=== PATIENT | male | born 1940 | race Caucasian/White ===

== ENCOUNTER 2021-06-26 06:43 | Day surgery (SDC) | payer MEDICARE, OTHER ==
[2021-06-26] MEDS ORDERED: fentaNYL 100 MCG/2 ML SDV IV ONE (06:44)
[2021-06-26] MEDS ORDERED: Midazolam 1 MG/ML 2 ML SDV IV ONE (06:44)
[2021-06-26] MEDS ORDERED: Sodium Chloride 0.9% 10 ML Syringe FLUSH PRN (06:45)
[2021-06-26] MEDS ORDERED: Lactated Ringers 1,000 ML IV SCH (06:45)
[2021-06-26] MEDS ORDERED: acetaZOLAMIDE 500 MG Cap.ER PO ONE (09:00)
--- NOTE | 2021-06-26 11:54 | OR ---
DATE OF OPERATION: 06/26/2021 SURGEON: Apple Carpio MD PREOPERATIVE DIAGNOSIS: Visually significant cataract, right eye. POSTOPERATIVE DIAGNOSIS: Visually significant cataract, right eye. PROCEDURES PERFORMED: Phacoemulsification with intraocular lens placement, right eye. ASSISTANTS: None. ANESTHESIA: Local with sedation. COMPLICATIONS: None. BLOOD LOSS: None. IMPLANTS: Walter Vivity [id number] 20.0 diopter lens implanted. CDE: 4.78. DESCRIPTION OF PROCEDURE: After risks and benefits were reviewed with the patient, consent was obtained in the preoperative area, and the operative eye was marked with a surgical pen. In the preoperative area, a pledget was used to dilate the pupil consisting of a mixture of phenylephrine 10%, cyclopentolate 2%, moxifloxacin 0.5%, and bupivacaine 0.75%. The patient was taken to the operating room, where a time-out was performed, and the patient was placed under monitored anesthesia care. Topical tetracaine was used for anesthesia. The operative eye was prepped and draped for ophthalmic surgery, and the microscope was brought into position and focused. A paracentesis incision was made, followed by injection of preservative-free Shugarcaine into the anterior chamber due to poor dilation followed by injection of an air bubble followed by injection of Vision Blue due to poor red reflex followed by injection of Viscoat into the anterior chamber. A microkeratome blade was used to make a corneal limbal incision temporally. A cystotome was used to make the beginning of the capsulorrhexis, which was carried around 360 degrees in a curvilinear fashion using Utrata forceps. A Rivers cannula with BSS was used to hydrodissect and hydrodelineate the nucleus. The nucleus was removed in a divide and conquer manner using phacoemulsification. Irrigation and aspiration were used to remove the remaining cortical material. Provisc was used to inflate the capsular bag, and a pre-loaded Walter Vivity [id number] 20.0 diopter lens, serial number [id number] was injected into the capsular bag. A Sinskey hook was used to position and center the lens. Next, irrigation and aspiration was used to remove any remaining viscoelastic and cortical material from the anterior chamber. BSS on a cannula was used to inflate the anterior chamber and hydrate the wound. The wound was checked and found to be watertight. 1 mg of Moxifloxacin was injected into the anterior chamber. Drapes were removed and the eye was cleaned. A drop of brimonidine 0.2% and a drop of TobraDex was placed. The eye was shielded, and the patient was taken to the recovery room in stable condition. /[id number] MARU/JOSEPH
[2021-06-26 15:32] VITALS: BP 93/68; PULSE 58
== END 2021-06-26 09:55 | disposition home or self-care (01) ==
LOC: FB.SDS 06:43
PROVIDERS: ATTEND Ophthalmology
DX: H25.813 Combined forms of age-related cataract, bilateral (principal); H43.21 Crystalline deposits in vitreous body, right eye; I15.9 Secondary hypertension, unspecified; I50.9 Heart failure, unspecified; E08.610 Diabetes mellitus due to underlying condition with diabetic neuropathic arthropathy; C64.2 Malignant neoplasm of left kidney, except renal pelvis; I25.10 Atherosclerotic heart disease of native coronary artery without angina pectoris; E08.40 Diabetes mellitus due to underlying condition with diabetic neuropathy, unspecified; Z79.899 Other long term (current) drug therapy; Z98.890 Other specified postprocedural states; Z87.891 Personal history of nicotine dependence
CPT/HCPCS: 00142-QZ; 82947; A9270-GY; J2250; J3010; J7120

== ENCOUNTER 2021-07-10 08:50 | Day surgery (SDC) | payer MEDICARE, OTHER ==
[~2021-07-10 08:50] MED LIST: Sodium Chloride 0.9% 10 ML Syringe FLUSH PRN
[2021-07-10] MEDS ORDERED: fentaNYL 100 MCG/2 ML SDV IV ONE (08:51)
[2021-07-10] MEDS ORDERED: Midazolam 1 MG/ML 2 ML SDV IV ONE (08:51)
[2021-07-10] MEDS: Lactated Ringers 1,000 ML IV SCH (09:30)
[2021-07-10] MEDS: acetaZOLAMIDE 500 MG Cap.ER PO ONE (10:35)
--- NOTE | 2021-07-10 10:49 | OR ---
DATE OF OPERATION: 07/10/2021 SURGEON: Apple Carpio MD PREOPERATIVE DIAGNOSIS: Visually significant cataract, left eye. POSTOPERATIVE DIAGNOSIS: Visually significant cataract, left eye. PROCEDURES PERFORMED: Phacoemulsification with intraocular lens placement, left eye. ASSISTANTS: None. ANESTHESIA: Local with sedation. COMPLICATIONS: None. BLOOD LOSS: None. IMPLANTS: Walter [id number] 20.5 diopter lens implanted. CDE: 4.78. DESCRIPTION OF PROCEDURE: After risks and benefits were reviewed with the patient, consent was obtained in the preoperative area, and the operative eye was marked with a surgical pen. In the preoperative area, a pledget was used to dilate the pupil consisting of a mixture of phenylephrine 10%, cyclopentolate 2%, moxifloxacin 0.5%, and bupivacaine 0.75%. The patient was taken to the operating room, where a time-out was performed, and the patient was placed under monitored anesthesia care. Topical tetracaine was used for anesthesia. The operative eye was prepped and draped for ophthalmic surgery, and the microscope was brought into position and focused. A paracentesis incision was made, followed by injection of preservative-free 1% lidocaine into the anterior chamber, followed by injection of Viscoat into the anterior chamber. A microkeratome blade was used to make a corneal limbal incision temporally. A cystotome was used to make the beginning of the capsulorrhexis, which was carried around 360 degrees in a curvilinear fashion using Utrata forceps. A Rivers cannula with BSS was used to hydrodissect and hydrodelineate the nucleus. The nucleus was removed in a divide and conquer manner using phacoemulsification. Irrigation and aspiration were used to remove the remaining cortical material. Provisc was used to inflate the capsular bag, and a Walter [id number] 20.5 diopter lens, serial number [id number] was injected into the capsular bag. A Sinskey hook was used to position and center the lens. Next, irrigation and aspiration was used to remove any remaining viscoelastic and cortical material from the anterior chamber. BSS on a cannula was used to inflate the anterior chamber and hydrate the wound. The wound was checked and found to be watertight. 1 mg of Moxifloxacin was injected into the anterior chamber. Drapes were removed and the eye was cleaned. A drop of brimonidine 0.2% and a drop of TobraDex was placed. The eye was shielded, and the patient was taken to the recovery room in stable condition. /[id number] MARU/JOSEPH
[2021-07-10 11:05] VITALS: BP 150/56; PULSE 62
== END 2021-07-10 11:10 | disposition home or self-care (01) ==
LOC: FB.SDS 08:50
PROVIDERS: ATTEND Ophthalmology
DX: E11.36 Type 2 diabetes mellitus with diabetic cataract (principal); H25.813 Combined forms of age-related cataract, bilateral; H43.21 Crystalline deposits in vitreous body, right eye; C64.2 Malignant neoplasm of left kidney, except renal pelvis; I50.9 Heart failure, unspecified; I15.9 Secondary hypertension, unspecified; Z79.4 Long term (current) use of insulin; I25.10 Atherosclerotic heart disease of native coronary artery without angina pectoris; I11.0 Hypertensive heart disease with heart failure; E11.40 Type 2 diabetes mellitus with diabetic neuropathy, unspecified; Z98.890 Other specified postprocedural states; Z79.899 Other long term (current) drug therapy; Z87.891 Personal history of nicotine dependence
CPT/HCPCS: 00142-QZ; 82947; A9270-GY; J2250; J3010; J7120